=== PATIENT | female | born 1940 | race American Indian/Alaskan Native ===

== ENCOUNTER 2017-07-27 15:46 | Outpatient (CLI) | payer MEDICARE ==
--- NOTE | 2017-07-27 20:29 | XRay Report ---
FINAL REPORT EXAM: XR KNEE BILAT 4+V HISTORY: BILATERAL KNEE PAIN TECHNIQUE: Five views of each knee were performed including standing views. Comparison: None FINDINGS: There is bilateral medial greater than lateral joint space narrowing, femoral condylar squaring and tibial spine blunting. There is bilateral medial and lateral tibial plateau osteophytic change. There is a left suprapatellar bursal fullness. There are patellofemoral degenerative changes. There is right greater than left lateral patellar facet osteoarthritis spur. 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
== END 2017-07-27 15:47 | disposition home or self-care (01) ==
LOC: SPVIMAG 15:46
PROVIDERS: ATTEND Orthopaedic Surgery Sports Medicine
DX: M17.0 Bilateral primary osteoarthritis of knee (principal)